=== PATIENT | male | born 1970 | race Caucasian/White ===

== ENCOUNTER → 2023-09-29 | Emergency (ER) | payer BC ==
[~2023-09-29] VITALS: Ht 180.3 cm; Wt 104.8 kg
[~2023-09-29] MED LIST: HYDROCODONE/APAP 5/325MG TABLET ONE; IBUPROFEN 400 MG TABLET ONE; TDAP [DIPH/PERTUSSIS/TET] 0.5 ML VIAL IM ONE
[2023-09-29] MEDS: TDAP [DIPH/PERTUSSIS/TET] 0.5 ML VIAL IM ONE (22:36)
[2023-09-29] MEDS: HYDROCODONE/APAP 5/325MG TABLET PO ONE (22:40)
[2023-09-29] MEDS: IBUPROFEN 400 MG TABLET PO ONE (23:24)
[2023-09-30 00:15] VITALS: BP 138/78; TEMP 98.1; O2SAT 97
== END | disposition home or self-care (01) ==
LOC: ER 20:29
DX: S80.12XA Contusion of left lower leg, initial encounter (principal); S80.11XA Contusion of right lower leg, initial encounter; S00.83XA Contusion of other part of head, initial encounter; R07.89 Other chest pain; M54.2 Cervicalgia; M54.50 Low back pain, unspecified; V89.2XXA Person injured in unspecified motor-vehicle accident, traffic, initial encounter; Y93.89 Activity, other specified; Y92.89 Other specified places as the place of occurrence of the external cause; Y99.8 Other external cause status
CPT/HCPCS: 70450-TC; 70486-TC; 71045-TC; 72125-TC; 72131-TC; 73590-TC; 90715